=== PATIENT | female | born 1950 | race Caucasian/White ===

== ENCOUNTER 2018-12-05 05:15 | Observation (INO) | payer MEDICARE ==
--- NOTE | 2018-12-04 14:41 | Diagnostic Imaging Report ---
EXAM: CHEST 2 VIEWS DATE: 12/04/2018 1:35 PM INDICATION: Preop, hysterectomy COMPARISON: None FINDINGS: Lines and tubes: None Heart size normal. No focal pulmonary opacity, pleural effusion or pneumothorax. There is bilateral perihilar bronchial wall thickening which may be seen with bronchitis or reactive airway disorder. Upper abdomen unremarkable with right upper quadrant surgical clips noted. No acute bony abnormality. IMPRESSION: No evidence for acute disease. Signed by: Dr. Raúl Calderon M.D. on 12/04/2018 2:38 PM
[~2018-12-05] VITALS: Ht 157.5 cm; Wt 65.8 kg
[~2018-12-05 05:15] MED LIST: CARAFATE1 GM/10 ML PO; OXYBUTYNIN CHLOR5 MG PO; PANTOPRAZOLE SO40 MG PO
--- OUTSIDE RECORDS SUMMARY | 2018-12-05 05:19 | XMS REPORT ---
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 Allergies, Adverse Reactions, Alerts This patient has no known allergies or adverse reactions. Medications This patient has no known medications. Results Test Description Test Time Test Comments Text Results Atomic Results Result Comments CHEST 2 VIEWS 2018-12-04 14:36:00 [place] [id number] Patient Name: YANG PENNY MR #: [id number] : 1950 Age/Sex: 68/F Req #: [id number] [facility] Physician: Ordered by: GENNY ALONSO MD Report #: [id number] Location: OR Room/Bed: Procedure: [id number] DX/CHEST 2 VIEWS Exam Date: 12/04/18 Exam Time: 1400 REPORT STATUS: Signed EXAM: CHEST 2 VIEWS DATE: 12/04/2018 1:35 PM INDIC ATION: Preop, hysterectomy COMPARISON: None FINDINGS: Lines and tubes: None Heart size normal. No focal pulmonary opacity, pleural effusion or pneumothorax. There is bilateral perihilar bronchial wall thickening which may be seen with bronchitis or reactive airway disorder. Upper abdomen unremarkable with right upper quadrant surgical clips noted. No acute bony abnormality. IMPRESSION: No evidence for acute disease. Signed by: Dr. Brian Serrato M.D. on 12/04/2018 2:38 PM Dictated By: BRIAN SERRATO MD [id number] Transcribed By: BEATRIS on 12/04/18 1438 COPY TO: GENNY ALONSO MD
[2018-12-05] MEDS ORDERED: CEFAZOLIN SOD 1 GM/NS 50ML 100 ML IV ONE (06:14)
[2018-12-05] MEDS ORDERED: DIPHENHYDRAMINE HCL 25 MG CAP PO PRN (07:45)
[2018-12-05] MEDS ORDERED: ACETAMINOPHEN 325 MG TAB PO PRN (07:45)
[2018-12-05] MEDS ORDERED: ZOLPIDEM TARTRATE 5 MG TAB PO PRN (07:45)
[2018-12-05] MEDS ORDERED: HYDROCODONE/APAP 10MG-325MG TAB PO PRN (07:45)
[2018-12-05] MEDS ORDERED: PROMETHAZINE HCL (IM) 25 MG/ML VIAL IV PRN (07:45)
[2018-12-05] MEDS ORDERED: ONDANSETRON HCL INJ 2MG/ML 2ML 2 MG/ML VIAL IV PRN (07:45)
[2018-12-05] MEDS ORDERED: BUPIVACAINE 0.25%/EPI 30ML SDV INJ ONE ×2 (08:21→08:56)
[2018-12-05] MEDS ORDERED: BUPIVACAINE HCL 0.5% INJ 30 ML VIAL INJ ONE (08:55)
[2018-12-05] MEDS ORDERED: FENTANYL CITRATE/PF 100MCG/2 ML INJ ONE ×2 (09:54→18:29)
[2018-12-05] MEDS ORDERED: METOCLOPRAMIDE HCL 10 MG/2ML VIAL ONE (09:56)
[2018-12-05] MEDS ORDERED: ONDANSETRON HCL INJ 2MG/ML 2ML 2 MG/ML VIAL ONE ×2 (09:56→18:05)
[2018-12-05] MEDS ORDERED: PROMETHAZINE HCL (IM) 25 MG/ML VIAL ONE (10:13)
[2018-12-05 14:00] VITALS: BP 147/75
--- NOTE | 2018-12-05 14:00 | NUR ---
The patient arrived to OBS around 1355 from PACU. RN performed comprehensive assessment on patient. VS were WNL. Patient's pain is rated at 6/10 on arrival. Reported no chest pain, shortness of breath. Patient SCD plugged with MANI hoses on. Skin intact.
--- NOTE | 2018-12-05 14:20 | Operative Report ---
DATE OF PROCEDURE: 12/05/2018 SURGEON: Raven Bailey MD PREOPERATIVE DIAGNOSES: Pelvic organ prolapse, genuine stress incontinence. POSTOPERATIVE DIAGNOSES: Pelvic organ prolapse, genuine stress incontinence. PROCEDURE: Transvaginal hysterectomy anterior repair, sacrospinous colpopexy, transobturator tape, and right salpingo-oophorectomy. COMPLICATIONS: None. ESTIMATED BLOOD LOSS: 50 mL. PROCEDURE IN DETAIL: The patient was taken to the OR. General anesthesia was induced. She was prepped and draped in a sterile fashion, placed in dorsal lithotomy position. Wide speculum was placed inside the vagina and cervix was grasped with single tooth tenaculum. The subvaginal tissue was injected around the cervix using Marcaine with epinephrine 0.25%. Vaginal skin incision was made with a scalpel circumferentially around the cervix and the bladder was dissected off the cervix using curved Faye scissors and gentle sweeps of latex wrapped on the index finger. Following this, the anterior wall of the vagina was held with 2 Allis clamps and the subvaginal tissue was dissected off the bladder using Metzenbaum scissors and the vagina was opened in the midline using the same scissors and the two flaps of vagina dissected off underlying bladder using both sharp and blunt dissection. Following this, was opened with Metzenbaum scissors and using the LigaSure, the uterosacral ligaments were held on each side, cauterized and cut and the same was repeated on the other side. uterine vessels were cauterized and cut on each side using the LigaSure and then the anterior pouch was opened with Metzenbaum scissors around the fundus and using LigaSure, the apex of the broad ligament was held with LigaSure, the pedicle secured and cut. Same was repeated on the other side. The uterus was freed and sent to pathology. The right ovary and tube were found, however, the left tube and ovary could not be found at all after several attempts. The right tube and ovary was held with a Clint and using the LigaSure, the infundibulopelvic ligament was cauterized and cut and specimen sent to the pathology. Following this, hemostasis was found to be adequate. The fascia was fused on the inferior pubic ramus on each side of the pelvis using the index finger and the sacrospinous ligament was palpated on each side and using the Capio needle overton, a Vicryl suture was placed on the middle of the sacrospinous ligament on the other end, was hooked up to vaginal vault and same was repeated on the other side. Following this, the pubocervical ligament on each side approximated using Vicryl 2-0 and the excess of vaginal skin anteriorly was trimmed off using Faye scissors. The vagina was closed with interlocking stitches of Vicryl 0. Following this, transobturator tape was performed. Hayes cathter was placed inside the bladder for drainage. The bladder neck was marked at the UVJ using the Allis clamp and another Allis clamp was applied at the external urethral meatus and subvaginal tissue between the two clamps was injected with Marcaine with epinephrine 0.25%, the vagina was opened using the scalpel to level of the midurethra and the vagina was dissected off the urethra using Metzenbaum scissors using towards the inferior pubic ramus on each side. Following this, using the Obtryx trocar, the trocar was applied, felt with a finger just below the inferior pubic ramus outside over the pelvis, the mesh was applied on the Obtryx trocar, trocar was withdrawn. The same was repeated on the other side and Obtryx trocar was laid down flat at the level of the midurethra. Vagina was closed with interlocking stitches of Vicryl 0. A cystoscopy was performed, which showed normal bladder and urethra. The excess sling was trimmed off at the entry point using scissors and the vagina was approximated using Dermabond. However, the left entry point was oozing more than normal and a Vicryl 2-0 suture was placed. Following this, the sacrospinous sutures were tied to the vaginal vault and the vagina was lifted. Vaginal pack and Hayes catheter were reinserted and urine was revealed. The patient tolerated the procedure. Lap and instrument count was correct x2 at the end of the procedure. Raven Bailey MD DD/DANGELO /[id number]
[2018-12-05] MEDS: KETOROLAC TROMETHAMINE 30 MG/ML VIAL IM PRN (15:02)
[2018-12-05 16:00] VITALS: BP 142/70
[2018-12-05 16:35] VITALS: BP 142/70
[2018-12-05] MEDS ORDERED: GLYCOPYRROLATE INJ 1MG/ 5 ML SYR ONE (18:05)
[2018-12-05] MEDS ORDERED: ROCURONIUM BROMIDE 10 MG/ML 5ML VIAL ONE (18:05)
[2018-12-05] MEDS ORDERED: ACETAMINOPHEN 1000 MG/100 ML IV ONE (18:05)
[2018-12-05] MEDS ORDERED: DEXAMETHASONE SOD PHOS INJ 4 MG/ML VIAL ONE (18:05)
[2018-12-05] MEDS ORDERED: LIDOCAINE HCL 2% LOCAL INJ 5 ML SDV VIAL INJ ONE (18:05)
[2018-12-05] MEDS ORDERED: SEVOFLURANE INHAL SOLN 250 ML PEN BTL ONE (18:05)
[2018-12-05] MEDS ORDERED: PROPOFOL IV EMULSION 10 MG/ML 20 ML VIAL ONE (18:05)
[2018-12-05] MEDS ORDERED: NEOSTIGMINE 5 MG/5ML SYR ONE (18:05)
[2018-12-05] MEDS ORDERED: NALOXONE HCL INJ 0.4 MG/ML AMP ONE (18:05)
[2018-12-05] MEDS ORDERED: MIDAZOLAM HCL 2 MG/2 ML VIAL ONE (18:29)
--- NOTE | 2018-12-05 19:25 | NUR ---
SKIN INTEGRITY INTACT, VAGINAL PACKING INTACT WITH NO ACTIVE BLEEDING NOTED. PATIENT DENIES PAIN, CALL LIGHT WITHIN EASY REACH, SHE'S INSTRUCTED TO CALL FOR ASSISTANCE NEEDED.
[2018-12-05 20:00] VITALS: BP 137/64
[2018-12-05] MEDS: LACTATED RINGER'S 1,000 ML IV SCH (21:35)
[2018-12-06] VITALS: BP 134/70
--- NOTE | 2018-12-06 00:31 | NUR ---
PATIENT IS SOUNDLY ASLEEP, SHE'S EASY TO AROUSE. NO RESPIRATORY DISTRESS OBSERVED, SHE DENIES PAIN. BED ALARM ON, CALL LIGHT WITHIN EASY REACH.
[2018-12-06] MEDS: KETOROLAC TROMETHAMINE 30 MG/ML VIAL IM PRN (03:42)
--- NOTE | 2018-12-06 03:44 | NUR ---
PATIENT C/O PAIN AND PRESSURE TO THE VAGINAL AREA WITH PAIN SCORE #8, MEDICATED WITH KETORALAC IM ORDERED. SHE'S ASSISTED TO REPOSITION ON HER RIGHT SIDE, MORALES CATHETER DRAINING WELL AND PATIENT REASSURE THAT THE PRESSURE WILL BE RELIEF ONCE THE VAGINAL PACKING IS REMOVED AT 0745 ORDERED BY MD. CALL LIGHT WITHIN EASY REACH, INSTRUCTED TO CALL FOR ASSISTANCE NEEDED.
[2018-12-06 04:00] VITALS: BP 150/77
[2018-12-06] MEDS: LACTATED RINGER'S 1,000 ML IV SCH ×2 (05:28→08:33)
[2018-12-06 07:45] VITALS: BP 143/77
--- NOTE | 2018-12-06 08:05 | NUR ---
Vaginal packing removed at this time. C/o pressure during removal by pt. Small amount of blood noted to area. Hayes catheter DC'd at this time, 1300cc of clear straw colored urine noted in bag.
[2018-12-06] MEDS ORDERED: PROMETHAZINE 12.5MG/ NACL 0.9% 50 ML IV PRN (10:30)
[2018-12-06 11:09] VITALS: BP 143/77
[2018-12-06 11:53] VITALS: BP 144/67
--- NOTE | 2018-12-06 13:00 | NUR ---
pt ambulating in hallway at this time.
[2018-12-06] MEDS ORDERED: TYLENOL WITH C1 EACH PO (14:48)
--- NOTE | 2018-12-06 15:38 | NUR ---
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 CM/SW role and care transitions discussed. Anticipated discharge plan discussed along with duration of care. CM/SW discussed patients right to make decisions in care. CM/SW work hours given. Patient lives: HOUSE Admit/Transfer: VIA ED POA/Emergency contact: REMY [phone] Current/Previous Home Health: NONE PCP/Follow-up Care: JERRELL Current/Previous DME: NONE Other Services: NONE Employment Status: RETIRED Areas of Concerns: NONE Referral Needs: NONE Education Needs: NONE IMM/PENNY given and signed (if applicable): PENNY Goal for discharge: RETURN HOME CM/SW left business card at the bedside with contact information. Name and number was also written on the patients whiteboard. Patient verbalized understanding of discussion. CM will follow-up with ongoing discharge and transition of care needs.
[2018-12-06 16:00] VITALS: BP 132/79
== END 2018-12-06 15:55 | disposition home or self-care (01) ==
LOC: OR 05:15 → PACU V 07:45 → IMCU 14:09
PROVIDERS: ADMIT Obstetrics & Gynecology; ATTEND Obstetrics & Gynecology
DX: N81.89 Other female genital prolapse (principal); N32.81 Overactive bladder; N39.3 Stress incontinence (female) (male); Z01.810 Encounter for preprocedural cardiovascular examination; Z01.812 Encounter for preprocedural laboratory examination; Z01.811 Encounter for preprocedural respiratory examination; K21.9 Gastro-esophageal reflux disease without esophagitis; Z90.49 Acquired absence of other specified parts of digestive tract
CPT/HCPCS: 36415; 57260; 57288; 58262; 71046; 82948; 86850; 86900; 88307; 93005; 96360; 96361; 96372; C1781; G0378 ×2; J0131; J0690; J1100; J1885 ×2; J2001; J2250; J2310; J2405; J2550; J2704; J2765; J3490; J7121 ×2

== ENCOUNTER → 2019-03-30 | Day surgery (SDC) | payer MEDICARE ==
[~2019-03-30] MED LIST changes: +ACETAMINOPHEN 1000 MG/100 ML 100 ML IV ONE; +BUPIVACAINE 0.5%/EPI 30 ML SDV INJ ONE; +CEFAZOLIN SOD 1 GM/NS 50ML 100 ML IV ONE; +DEXAMETHASONE SOD PHOS INJ 4 MG/ML VIAL ONE; +FENTANYL CITRATE/PF 100MCG/2 ML INJ ONE; +KETOROLAC TROMETHAMINE 30 MG/ML VIAL ONE; +LIDOCAINE HCL 2% LOCAL INJ 5 ML SDV VIAL INJ ONE; +MIDAZOLAM HCL 2 MG/2 ML VIAL ONE; +ONDANSETRON HCL INJ 2MG/ML 2ML 2 MG/ML VIAL ONE; +PROPOFOL IV EMULSION 10 MG/ML 20 ML VIAL ONE; +SEVOFLURANE INHAL SOLN 250 ML PEN BTL ONE; +TYLENOL WITH C1 EACH PO
--- OUTSIDE RECORDS SUMMARY | 2019-03-30 10:24 | XMS REPORT | Summary of Care ---
Author Author [facility] Organization [facility] Address Unknown Phone Unavailable Encounter HQ Sayrantr_melissa(FIN) [id number] Date(s): 01/30/18 - 01/30/18 [facility] [address] [place] [address]- [phone] Encounter Diagnosis Unspecified lump in the right breast, lower outer quadrant (Final) - Discharge Disposition: Home or Self Care Attending Physician: Joe Casper MD Referring Physician: Joe Casper MD Vital Signs No data available for this section Problem List No data available for this section Allergies, Adverse Reactions, Alerts No data available for this section Medications No data available for this section Results No data available for this section Immunizations No data available for this section Procedures No data available for this section Social History No data available for this section Assessment and Plan No data available for this section
--- OUTSIDE RECORDS SUMMARY | 2019-03-30 10:24 | XMS REPORT | Continuity of Care Document ---
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 Information Phanfare Unavailable Unavailable Problems Problem Status Onset Date Classification Date Reported Comments Source SCREENING/Z78.0=ASYMPTOMATIC MENOPAUSAL Active 02/05/2019 [facility] CALL BACK FORM DX: MASS Active 01/24/2018 [facility] Z12.31 - ENCNTR SCREEN MAMMOGRAM FOR MA Active 12/23/2017 [facility] [place] SCREENING MAMMGORAM Active 12/23/2017 [facility] Unspecified lump in the right breast, lower outer quadrant 02/08/2018 [facility] UNSPECIFIED LUMP IN THE RIGHT BREAST, UN Active [facility] INCONCLUSIVE MAMMOGRAM Active [facility] Medications No Data Provided for This Section Allergies, Adverse Reactions, Alerts No Known Medication Allergies Immunizations No Data Provided for This Section Results No Data Provided for This Section Pathology Reports No Data Provided for This Section Diagnostic Reports Report Value Date Source Breast Mammo Scrn WALE w alexandre incl CAD MA BILATERAL DIGITAL SCREENING MAMMOGRAM 3D/2D WITH CAD: 02/16/2019 CLINICAL: /Routine. Current study was evaluated with a Computer Aided Detection (CAD) system. COMPARISON:Comparison is made to exams dated: 01/30/2018 mammogram, 01/20/2018 mammogram - [facility], 04/22/2016 mammogram, 11/21/2015 mammogram - [facility], 06/28/2013 mammogram, and 05/18/2013 mammogram - [facility]. TECHNIQUE: Digital Breast Tomosynthesis was performed and utilized for Interpretation. Edevate Version 1.3 was utilized for computer aided detection. FINDINGS: There are scattered fibroglandular densities in both breasts. There are benign calcifications in both breasts. No significant masses, calcifications, or other findings are seen in either breast. There has been no significant interval change. IMPRESSION: BENIGN RECOMMENDATION:There is no mammographic evidence of malignancy. A 1 year screening mammogram is recommended.(02/17/2020) This exam was interpreted at [id number] for [facility]. Timoteo miranda/mitesh:02/16/2019 12:43:35 Associate Spa Director(s): Cass Oliveros, [facility] letter sent: BI-RADS 1/2 Mammogram BI-RADS: 2 Benign 02/16/2019 [facility] Bone Density Scan Study: Bone Density Scan Clinical Indication: Osteoporosis screening; Images of the axial lumbar spine and left hip have been performed using Hologic Discovery SL scanner. COMPARISON: 10/29/2016 FINDINGS: The left hip bone mineral density is 93% of the peak reference bone mass with a T-score of -0.5. Left hip BMD is 0.879 g/cm2. Left femoral neck BMD is 0.701 g/cm2 and T-score of -1.3. Left hip BMD has increased 17.2% since previous exam. The axial lumbar bone mineral density is 90% of the peak reference bone mass with a T-score of -1.0. Axial lumbar average BMD is 0.938 g/cm2. Lumbar spine BMD has increased 12.3% since previous exam. 10 year fracture risk without prior fracture with prior fracture Major osteoporotic fracture 9.3% 15% Hip fracture 1% 1.7% IMPRESSION: 1. Osteopenia of the left femoral neck. 2. Normal bone mineral density of the total left hip. 3. Osteopenia of the lumbar spine. The World Health Organization has established that OSTEOPOROSIS occurs at -2.5 or more standard deviations (SD) below peak bone mass (T-score on the Hologic report). OSTEOPENIA (low bone mass) occurs at greater than -1.0 standard deviations to -2.5 standard deviations below peak bone mass. SL: [id number] 02/16/2019 [facility] Breast Complete Uni US COMPLETE ULTRASOUND OF RIGHT BREAST AND AXILLA: 01/30/2018 CLINICAL: /Nodule abnormal mammogram, mammographic nodule/density. COMPARISON:Comparison is made to exams dated: 01/30/2018 mammogram, 01/20/2018 mammogram - [facility], 04/22/2016 mammogram, 11/21/2015 mammogram - [facility], 06/28/2013 mammogram, and 06/28/2013 ultrasound - [facility]. TECHNIQUE: Color flow and real-time ultrasound of the right breast four quadrants, retroareolar, and axilla regions were performed. Christensen scale images of the real-time examination were reviewed. FINDINGS: There is a small benign cyst right breast at 8 o'clock that correlates with mammography. No abnormalities were seen sonographically in the right axilla. IMPRESSION: BENIGN RECOMMENDATION:There is no sonographic evidence of malignancy. Return to annual mammogram screening schedule is recommended.(01/20/2019) The results were reviewed with the patient. This exam was interpreted at [id number] for [facility]. Timoteo miranda/penrad:01/30/2018 15:28:08 Associate Spa Director(s): Damaris Moise [facility] letter sent: BI-RADS 1/2 Ultrasound BI-RADS: 2 Benign 01/30/2018 [facility] Breast Mammo Diag UNI w alexandre incl CAD MA UNILATERAL RIGHT DIGITAL DIAGNOSTIC MAMMOGRAM 3D/2D WITH CAD: 01/30/2018 CLINICAL: /Breast Mass abnormal mammogram, mammographic nodule/density. Current study was evaluated with a Computer Aided Detection (CAD) system. COMPARISON:Comparison is made to exams dated: 01/20/2018 mammogram - [facility], 04/22/2016 mammogram, 11/21/2015 mammogram - [facility], 06/28/2013 mammogram, and 05/18/2013 mammogram - [facility]. TECHNIQUE: Digital Breast Tomosynthesis was performed and utilized for Interpretation. Taskmita Version 1.3 was utilized for computer aided detection. FINDINGS: There are scattered fibroglandular densities in right breast. There are benign calcifications in the right breast. There is a nodule in the right breast at 7 o'clock middle depth. This correlates with the prior exam. No other significant masses or calcifications are seen in the breast. IMPRESSION: INCOMPLETE: NEEDS ADDITIONAL IMAGING EVALUATION RECOMMENDATION:The nodule in the right breast resembles a cyst and is indeterminate. An ultrasound is recommended. The results were reviewed with the patient. This exam was interpreted at [id number] for [facility]. SUMMARY: Ultrasound will be performed at this time; please see dedicated separate report. Timoteo miranda/penrad:01/30/2018 15:26:41 Associate Spa Director(s): Jillian Schneider, [facility] Mammogram BI-RADS: 0 Indeterminate 01/30/2018 [facility] Breast Mammo Scrn WALE w alexandre incl CAD MA BILATERAL DIGITAL SCREENING MAMMOGRAM 3D/2D WITH CAD: 01/20/2018 CLINICAL: /Routine. Current study was evaluated with a Computer Aided Detection (CAD) system. COMPARISON:Comparison is made to exams dated: 04/22/2016 mammogram, 11/21/2015 mammogram - [facility], 06/28/2013 mammogram, and 05/18/2013 mammogram - [facility]. TECHNIQUE: Digital Breast Tomosynthesis was performed and utilized for Interpretation. Edevate Version 1.3 was utilized for computer aided detection. FINDINGS: There are scattered fibroglandular densities in both breasts. There are benign calcifications in both breasts. There is a nodule in the right breast at 6 o'clock middle depth. No other significant masses, calcifications, or other findings are seen in either breast. IMPRESSION: INCOMPLETE: NEEDS ADDITIONAL IMAGING EVALUATION RECOMMENDATION:The nodule in the right breast is indeterminate. Right diagnostic mammogram with possible ultrasound is recommended (spot compression and lateral views). This exam was interpreted at [id number] for [facility]. Timoteo cowartt/:01/20/2018 15:07:41 Associate Spa Director(s): Cass Oliveros [facility] letter sent: BI-RADS 0 Mammogram BI-RADS: 0 Indeterminate 01/20/2018 [facility] Bone Density DXA [employer] MA - Bone Density DXA [employer] MA BONE DENSITY EVALUATION: 10/29/2016 CLINICAL DATA: Post menopausal and clinical risk for osteoporosis. RISK FACTORS: race. FINDINGS: Bone density evaluation was performed 10/29/2016 on the AP L1-L4 region of spine using a Hologic unit. The BMD average for the exam is 0.835 g/cm2. The T-score is -1.90 and the Z-score is -0.10. This matches the World Health Organization's criteria for osteopenia and places the patient at a medium risk for fracture. An additional bone density evaluation was performed 10/29/2016 on the right femur neck using a Hologic unit. The BMD average for the exam is 0.659 g/cm2. The T-score is -1.70 and the Z-score is -0.10. This matches the World Health Organization's criteria for osteopenia and places the patient at a medium risk for fracture. An additional bone density evaluation was performed 10/29/2016 on the right hip using a Hologic unit. The BMD average for the exam is 0.780 g/cm2. The T-score is -1.30. This matches the World Health Organization's criteria for osteopenia and places the patient at a medium risk for fracture. An additional bone density evaluation was performed 10/29/2016 on the left femur neck using a Hologic unit. The BMD average for the exam is 0.664 g/cm2. The T- score is -1.70 and the Z-score is -0.10. This matches the World Health Organization's criteria for osteopenia and places the patient at a medium risk for fracture. An additional bone density evaluation was performed 10/29/2016 on the left hip using a Hologic unit. The BMD average for the exam is 0.750 g/cm2. The T-score is -1.60 and the Z-score is -0.30. This matches the World Health Organization's criteria for osteopenia and places the patient at a medium risk for fracture. IMPRESSION: OSTEOPENIA Patient is at medium risk for fracture. Professional services are provided by the [facility] Diagnostic [facility]. This exam was dictated and interpreted by [id number] for HAIM Amin 15. Yee Dumont M.D., ms/mitesh:11/01/2016 14:42:17 Associate Spa Director: Sofía TURNER(Eric)(M), [facility] 10/29/2016 JAMES Krishnamurthy Digital Mammo DX Uni MA - DIGITAL MAMMO DX UNI MA/L UNILATERAL LEFT DIGITAL DIAGNOSTIC MAMMOGRAM WITH CAD: 04/22/2016 CLINICAL: R92.8 Other Abnormal And Inconclusive Findings On Diagnostic Imaging Of Breast. Current study was evaluated with a Computer Aided Detection (CAD) system. Comparison is made to exams dated: 11/21/2015 mammogram - [facility], 06/28/2013 mammogram and 05/18/2013 mammogram - [facility]. There are scattered fibroglandular densities in the left breast. Prior density is no longer seen in the left breast at 7 o'clock in the middle depth. This is consistent with overlapping fibroglandular tissue. There are benign calcifications in the left breast. No significant masses, calcifications, or other findings are seen in the breast. IMPRESSION: BENIGN There is no mammographic evidence of malignancy. Return to annual mammogram screening schedule is recommended. SUMMARY: The patient will be due for her annual mammogram in November 2016. Yee Dumont M.D. ms/penrad:04/22/2016 16:03:24 Associate Spa Director: Sofía ARRINGTON)(Shwetha), [facility] This exam was dictated and interpreted by [id number] for JAMES Krishnamurthy. letter sent: Benign Left Mammogram BI-RADS: 2 Benign 04/22/2016 JAMES Krishnamurthy Digital Mammo Screening [place]ale [place] AMENDMENT: 12/22/2015 Jose Manuel Faye M.D. Prior mammograms dated 05/28/13 and 06/28/13 were reviewed. The focal asymmetry was not present on prior exam, and further evaluation should be performed with diagnostic mammogram and ultrasound. Amended BI-RADS: 0 Indeterminate letter sent: Additional Imaging - DIGITAL MAMMO SCREENING WALE MA BILATERAL DIGITAL SCREENING MAMMOGRAM WITH CAD: 11/21/2015 CLINICAL: Routine. Current study was evaluated with a Computer Aided Detection (CAD) system. No prior exams were available for comparison. The tissue of both breasts is almost entirely fat. There is a focal asymmetry in the left breast at 7 o'clock middle depth 10 cm from the nipple. No other significant masses, calcifications, or other findings are seen in either breast. IMPRESSION: INCOMPLETE: NEEDS ADDITIONAL IMAGING EVALUATION The focal asymmetry in the left breast is most conspicuous on the MLO view and is indeterminate. Additional views with possible ultrasound are recommended unless previous films are received and show no significant interval change. SUMMARY: The staff from [facility] will contact the patient to schedule the additional studies. A separate report will be issued following interpretation of the additional studies. Jose Manuel Faye M.D. cm/:12/01/2015 09:03:41 Associate Spa Director: Sofía HUTSONR)(Shwetha), [facility] This exam was dictated and interpreted by [id number] for JAMES Krishnamurthy. letter sent: Additional Imaging Mammogram BI-RADS: 0 Indeterminate 11/21/2015 JAMES Krishnamurthy Shoulder wo contrast MRI EXAM: MRI of the right shoulder without contrast. HISTORY: S46.091A Other injury of muscle(s) and tendon(s) of the rotator cuff of right shoulder, initial encounter COMPARISON: X-rays on 10/21/2015 TECHNIQUE: Multiplanar, multisequence MRI of the right shoulder without contrast. FINDINGS: Rotator cuff: There is a full-thickness tear of the distal supraspinatus tendon to supraspinatus/infraspinatus junction measuring up to 1.5 cm AP with up to 2.2 cm retraction of the torn fibers. There is a thin distal stump of fibers that remains attached to the greater tuberosity. There is also mild subscapularis tendinosis without a tear. The rotator cuff muscles are normal in bulk. Biceps tendon: The intra-articular portion of the long head biceps tendon is not well visualized and appears to be torn or partially torn. The extra-articular portion of the long head biceps tendon is also somewhat thin but intact. Glenohumeral joint: There is associated attenuation of the superior labrum. There is no discrete labral tear. There is mild chondral degeneration and heterogeneity along the glenoid and humeral head without a focal chondral defect. The glenohumeral joint capsule is intact. There is no evidence of adhesive capsulitis. There is a small glenohumeral joint effusion with fluid extending into the subacromial/subdeltoid bursa through the rotator cuff tear. Acromioclavicular joint: There is mild to moderate acromioclavicular joint arthrosis. The acromion is type II in morphology with mild undersurface spurring. The coracoclavicular ligament is intact. IMPRESSION: 1. Full-thickness tear of the distal supraspinatus tendon to supraspinatus/infraspinatus junction measuring up to 1.5 cm AP with up to 2.2 cm retraction of the torn fibers. There is a thin distal stump of fibers that remains attached to the greater tuberosity. There is also mild subscapularis tendinosis without a tear. 2. Intra-articular portion of the long head biceps tendon is not well visualized and appears to be torn or partially torn. The extra-articular portion of the long head biceps tendon is also somewhat thin but intact. There is associated attenuation of the superior labrum. There is no discrete labral tear. 3. Mild chondral degeneration and heterogeneity along the glenoid and humeral head without a focal chondral defect. 4. Small glenohumeral joint effusion with fluid extending into the subacromial/subdeltoid bursa through the rotator cuff tear. 5. Mild to moderate acromioclavicular joint arthrosis as well as mild undersurface spurring of the acromion. 11/21/2015 ANABEL Krishnamurthy Spine cervical 2 or 3 view DX CERVICAL SPINE X-RAY, 3 VIEWS History: 65-year-old female with cervicalgia and pain to the right arm for the last 3 to 4 weeks. Comparison: None. Findings: No cervical fracture seen. Grade 1 or 2 mm anterolisthesis of C6 on C7 noted. Other vertebral bodies are well aligned. Cervical vertebral bodies have normal height. The intervertebral space C5-C6 is significant narrow with ventral and dorsal endplate osteophytes. Other disc space heights are well maintained. Prevertebral soft tissues are unremarkable. IMPRESSION: No acute cervical abnormality. C5-C6 disc disease suspected with dorsal osteophytes. Grade 1 anterolisthesis of C6 and C7. Followup with cervical MRI suspected if patient remains symptomatic. [facility] Right Shoulder x-ray 3 views Clinical history: 65-year-old female with shoulder pain for the last 3 to 4 weeks. Findings: Three views of the right shoulder demonstrate no acute fracture or subluxation. The distal clavicle and the acromion are aligned with sclerosis at the acromion clavicular joint. Small marginal osteophytes noted. The humeral head and the acromium are aligned. The humeral head is relative high close to the acromium, this may be associated with rotator cuff injury. The glenohumeral joint space is narrow. Soft tissues around shoulder are normal. Impression: Mild clavicular joint osteoarthritis. The humeral head is relative high close to the acromium, this suggests a rotator cuff injury. 10/21/2015 ANABEL Krishnamurthy Consultation Notes No Data Provided for This Section Discharge Summaries No Data Provided for This Section History and Physicals No Data Provided for This Section Vital Signs No Data Provided for This Section Encounters Location Location Details Encounter Type Encounter Number Reason For Visit Attending Provider ADM Date DC Date Status Source [facility] [id number] Souheil Casper 10/21/2015 10/22/2015 [facility] [place] [facility] [place] [facility] [id number] Crow Erazo 11/21/2015 11/22/2015 [facility] [place] [facility] [place] [facility] [id number] Souheil Casper 04/22/2016 04/23/2016 [facility] [place] [facility] [place] [facility] [id number] Souheil Casper 10/29/2016 10/30/2016 [facility] [place] [facility] Out[facility] [id number] Souheil Casper 01/20/2018 01/21/2018 [facility] Outpatient [id number] Souheil Casper 01/30/2018 01/31/2018 [facility] Outpatient [id number] Souheil Casper 02/16/2019 02/17/2019 [facility] Procedures No Data Provided for This Section Assessment and Plan No Data Provided for This Section Plan of Care No Data Provided for This Section Social History Social History Date Source No data available for this section 02/17/2019 [facility] No data available for this section 10/30/2016 [facility] [place] Family History No Data Provided for This Section Advance Directives No Data Provided for This Section Functional Status No Data Provided for This Section
--- OUTSIDE RECORDS SUMMARY | 2019-03-30 10:24 | XMS REPORT | Summary of Care ---
Author Author [facility] Organization [facility] Address Unknown Phone Unavailable Encounter HQ Encntr_alias(FIN) [id number] Date(s): 01/20/18 - 01/20/18 [facility] [address] [place] [address]- Discharge Disposition: Home or Self Care Attending [...]
--- OUTSIDE RECORDS SUMMARY | 2019-03-30 10:24 | XMS REPORT | Summary of Care ---
Author Author [facility] Organization [facility] Address Unknown Phone Unavailable Encounter HQ Encntr_alias(FIN) [id number] Date(s): 01/30/18 - 01/30/18 [facility] [address] [place] [address]- Discharge Disposition: Home or Self Care Attending [...]
--- OUTSIDE RECORDS SUMMARY | 2019-03-30 10:25 | XMS REPORT | Summary of Care ---
Author Author [facility] [place] Organization [facility] [place] Address Unknown Phone Unavailable Encounter HQ Encntr_melissa(FIN) [id number] Date(s): 10/29/16 - 10/29/16 [facility] [place] [address] [place] [address] [phone] Discharge Disposition: Home or Self Care Attending Physician: Joe Casper MD Vital Signs No [...]
--- OUTSIDE RECORDS SUMMARY | 2019-03-30 10:25 | XMS REPORT | Summary of Care ---
Author Author [facility] [place] Organization [facility] [place] Address Unknown Phone Unavailable Encounter HQ Sayrantr_melissa(FIN) [id number] Date(s): 10/21/15 - 10/21/15 [facility] [place] [address] [place] [address] [phone] Discharge Disposition: Home Attending Physician: Joe Casper MD Vital Signs [...]
--- OUTSIDE RECORDS SUMMARY | 2019-03-30 10:25 | XMS REPORT | Summary of Care ---
Author Author [facility] [place] Organization [facility] [place] Address Unknown Phone Unavailable Encounter HQ Encntr_alisridevi(FIN) [id number] Date(s): 04/22/16 - 04/22/16 [facility] [place] [address] [place] [address]- [phone] Discharge Disposition: Home or Self Care Attending [...]
--- OUTSIDE RECORDS SUMMARY | 2019-03-30 10:25 | XMS REPORT | Summary of Care ---
Author Author [facility] Organization [facility] Address Unknown Phone Unavailable Encounter HQ Encntr_alias(FIN) [id number] Date(s): 02/16/19 - 02/16/19 [facility] [address] [place] [address]- [phone] Discharge Disposition: Home or Self Care Attending [...]
--- OUTSIDE RECORDS SUMMARY | 2019-03-30 10:25 | XMS REPORT | Summary of Care ---
Author Author [facility] [place] Organization [facility] [place] Address Unknown Phone Unavailable Encounter HQ Encntr_alisridevi(FIN) [id number] Date(s): 11/21/15 - 11/21/15 [facility] [place] [address] [place] [address] [phone] Discharge Disposition: Home Attending Physician: Crow Erazo MD Vital Signs No data available for [...]
[2019-03-30 11:17] LABS: BASOPHILS # (AUTO) 0.1 (0.0-0.1); BASOPHILS % 0.6 % (0.0-1.0); EOSINOPHILS # (AUTO) 0.1 (0.0-0.4); EOSINOPHILS % 1.2 % (0.0-6.0); HEMATOCRIT 46.8 % (34.2-44.1); HEMOGLOBIN 16.8 g/dL (12.0-16.0); LYMPHOCYTES # (AUTO) 3.1 (1.0-3.2); LYMPHOCYTES % 39.7 % (18.0-39.1); MEAN CORPUSCULAR HEMOGLOBIN 33.5 pg (28-32); MEAN CORPUSCULAR HGB CONC 35.9 g/dL (31-35); MEAN CORPUSCULAR VOLUME 93.4 fL (81-99); MONOCYTES # (AUTO) 0.5 (0.2-0.8); MONOCYTES % 6.8 % (4.4-11.3); NEUTROPHILS % 51.4 % (38.7-80.0); PLATELET COUNT 404 x10e3/uL (140-360); RED BLOOD COUNT 5.01 x10e6/uL (3.6-5.1); RED CELL DISTRIBUTION WIDTH 12.9 % (11.7-14.4)
--- NOTE | 2019-03-30 12:27 | Diagnostic Imaging Report ---
EXAMINATION: PA and lateral views of the chest. COMPARISON: 12/04/2018 CLINICAL HISTORY: Preoperative study for orthopedic procedure DISCUSSION: Lines/tubes: None. Lungs: The lungs are well inflated and clear. There is no evidence of pneumonia or pulmonary edema. Pleura: There is no pleural effusion or pneumothorax. Heart and mediastinum: The cardiomediastinal silhouette is normal. Bones and soft tissues: No acute bony abnormalities. Right upper quadrant surgical clips likely reflect cholecystectomy. IMPRESSION: No acute cardiopulmonary abnormalities. Signed by: Dr. Cosme Sims M.D. on 03/30/2019 12:24 PM
[2019-03-30 14:55] VITALS: BP 130/83
--- NOTE | 2019-04-03 00:31 | Operative Report ---
DATE OF PROCEDURE: 03/30/2019 SURGEON: Crow Erazo MD PREOPERATIVE DIAGNOSES: 1. Left knee medial meniscus tear. 2. Left knee degenerative joint disease of the knee. POSTOPERATIVE DIAGNOSES: 1. Left knee medial meniscus tear. 2. Left knee degenerative joint disease of the knee. OPERATION/PROCEDURE PERFORMED: The patient underwent left knee examination under anesthesia, left knee arthroscopy, left knee partial medial meniscectomy, left knee chondroplasty of the patella, the trochlea, the medial femoral condyle, the medial tibial plateau, the lateral femoral condyle, and lateral tibial plateau. CROSSING GUARD: There was no oncology physician assistant. ANESTHESIA: General endotracheal intubation anesthesia. IV FLUIDS: Per the anesthesia record. BRIEF DESCRIPTION OF THE PATIENT'S OPERATIVE PROCEDURE: Ms. Dunn was taken to the operating room, placed in supine position on the operating table. Following induction of general anesthesia as well as the endotracheal intubation, the patient's left lower extremity was examined under anesthesia. She was found to have a mild effusion within the knee joint, but otherwise ligamentously stable knee. The patient's lower extremity was prepped and draped in standard surgical fashion. A two-port technique was used to provide this patient arthroscopic approach to the knee joint. Examination of suprapatellar pouch and medial lateral gutters found no evidence of loose bodies. There was, however, evidence of chondromalacia of the patella and trochlear surfaces. Scope was advanced to the medial compartment. Examination of the medial compartment demonstrated a torn medial meniscus. There was also chondromalacia of the articulating surfaces. A combination of biting forceps and a motorized shaver used to resect the torn portion of meniscus. Chondroplasties of the medial femoral condyle and medial tibial plateau were performed at this time. Chondroplasties of the medial femoral condyle and medial tibial plateau were performed at this time. The scope was advanced to the intercondylar notch and the anterior cruciate ligament was identified and found to be intact. Scope was advanced to the lateral compartment and there was chondromalacia of the articulating surfaces. A shaver was used to provide a chondroplasty for the lateral femoral condyle and the lateral tibial plateau. Scope was then placed in suprapatellar pouch. Chondroplasties of the patella and trochlea were performed. The knee was deflated with sterile normal saline. The portal sites were closed using 4-0 nylon suture. The portal sites as well as knee itself were injected with 0.5% Marcaine with epinephrine. Sterile dressings were applied. The patient was then awakened, taken to postanesthesia care in stable condition. MD GABRIELA Baker/DANGELO /[id number]
== END | disposition home or self-care (01) ==
LOC: OR 10:21
PROVIDERS: ATTEND Specialist
DX: S83.222A Peripheral tear of medial meniscus, current injury, left knee, initial encounter (principal); M17.12 Unilateral primary osteoarthritis, left knee; M22.42 Chondromalacia patellae, left knee; K21.9 Gastro-esophageal reflux disease without esophagitis; X58.XXXA Exposure to other specified factors, initial encounter
CPT/HCPCS: 29881; 36415; 71046; 85025; 93005; J0131; J0690; J1100; J1885; J2001; J2250; J2405; J2704; J3010

== ENCOUNTER → 2025-06-04 | Outpatient (REF) | payer MEDICARE ==
[~2025-06-04] MED LIST changes: -ACETAMINOPHEN 1000 MG/100 ML 100 ML IV ONE; -BUPIVACAINE 0.5%/EPI 30 ML SDV INJ ONE; -CEFAZOLIN SOD 1 GM/NS 50ML 100 ML IV ONE; -DEXAMETHASONE SOD PHOS INJ 4 MG/ML VIAL ONE; -FENTANYL CITRATE/PF 100MCG/2 ML INJ ONE; -KETOROLAC TROMETHAMINE 30 MG/ML VIAL ONE; -LIDOCAINE HCL 2% LOCAL INJ 5 ML SDV VIAL INJ ONE; -MIDAZOLAM HCL 2 MG/2 ML VIAL ONE; -ONDANSETRON HCL INJ 2MG/ML 2ML 2 MG/ML VIAL ONE; -PROPOFOL IV EMULSION 10 MG/ML 20 ML VIAL ONE; -SEVOFLURANE INHAL SOLN 250 ML PEN BTL ONE
== END ==
LOC: RAD 11:59
PROVIDERS: ATTEND Internal Medicine
DX: M79.622 Pain in left upper arm (principal); M54.12 Radiculopathy, cervical region
CPT/HCPCS: 72050